=== PATIENT | male | born 1975 | race African-American/Black ===

== ENCOUNTER 2018-09-27 11:15 | Emergency (ER) | payer OTHER, MEDICAID ==
[2018-09-27] MEDS: DEXAMETHASONE 10 MG/ML 1 ML INJ IM (12:36)
[2018-09-27] MEDS: KETOROLAC 60 MG INJ IM (12:36)
== END 2018-09-27 13:06 | disposition home or self-care (01) ==
LOC: FTE 11:15
DX: M54.42 Lumbago with sciatica, left side (principal)
CPT/HCPCS: 96372; 99284-25

== ENCOUNTER 2019-02-03 06:27 | Emergency (ER) | payer OTHER ==
[2019-02-03] MEDS: DEXAMETHASONE 10 MG/ML 1 ML INJ IM (07:21)
[2019-02-03] MEDS: KETOROLAC 30 MG INJ IM (07:21)
== END 2019-02-03 07:35 | disposition home or self-care (01) ==
LOC: FTE 06:27
DX: M54.42 Lumbago with sciatica, left side (principal); F17.210 Nicotine dependence, cigarettes, uncomplicated
CPT/HCPCS: 96372; 99284-25